=== PATIENT | male | born 2000 | race Caucasian/White ===

== ENCOUNTER 2019-05-18 11:45 | Emergency (ER) | payer SELFPAY ==
[2019-05-18] MEDS ORDERED: WELLBUTRIN SR150 MG PO (11:58)
== END 2019-05-18 13:17 | disposition home or self-care (01) ==
LOC: ED 11:45
DX: J02.8 Acute pharyngitis due to other specified organisms (principal); Z87.891 Personal history of nicotine dependence; Z79.899 Other long term (current) drug therapy
CPT/HCPCS: 87502; 87880; 99283; A9270

== ENCOUNTER 2021-01-19 16:21 | Emergency (ER) | payer OTHER ==
[~2021-01-19] VITALS: Ht 172.7 cm; Wt 77.1 kg
[~2021-01-19 16:21] MED LIST: WELLBUTRIN SR150 MG PO
== END 2021-01-19 19:00 | disposition home or self-care (01) ==
LOC: ED 16:21
DX: S61.412A Laceration without foreign body of left hand, initial encounter (principal); Z23 Encounter for immunization; W26.9XXA Contact with unspecified sharp object(s), initial encounter; Z87.891 Personal history of nicotine dependence
CPT/HCPCS: 12001; 73130; 90471; 90715; 99283-25

== ENCOUNTER 2021-12-16 13:13 | Emergency (ER) | payer OTHER ==
[~2021-12-16] VITALS: Ht 172.7 cm; Wt 74.6 kg
== END 2021-12-16 16:16 | disposition home or self-care (01) ==
LOC: ED 13:13
DX: H10.9 Unspecified conjunctivitis (principal); F31.9 Bipolar disorder, unspecified; R45.851 Suicidal ideations; Z87.891 Personal history of nicotine dependence
CPT/HCPCS: 99283